=== PATIENT | male | born 1965 | race Caucasian/White ===

== ENCOUNTER 2020-03-19 16:00 | Outpatient (RCR) | payer BC | END 2020-03-19 16:30 | disposition still patient (30) | LOC: OT 16:00 | DX: M77.8 Other enthesopathies, not elsewhere classified (principal) ==

== ENCOUNTER → 2023-10-26 | Outpatient (CLI) | payer BC | LOC: RAD 16:36 | DX: M47.816 Spondylosis without myelopathy or radiculopathy, lumbar region (principal); Z87.828 Personal history of other (healed) physical injury and trauma ==